=== PATIENT | male | born 1975 | race Asian ===

== ENCOUNTER 2018-08-31 12:47 | Emergency (ER) | payer OTHER ==
[~2018-08-31] VITALS: Ht 170.2 cm; Wt 69.4 kg
[2018-08-31 13:16] VITALS: BP 113/73
[2018-08-31] MEDS ORDERED: KETOROLAC TROMETHAMINE INJ 30 MG/ML VIAL ONE (13:27)
[2018-08-31] MEDS ORDERED: KETOROLAC TROMETHAMINE INJ 60 MG/2 ML VIAL IM ONE (13:30)
--- NOTE | 2018-08-31 13:35 | NUR ---
For discharge- ACI given Home ambulatory stable
== END 2018-08-31 13:36 | disposition home or self-care (01) ==
LOC: ER 12:51
DX: S39.012A Strain of muscle, fascia and tendon of lower back, initial encounter (principal); X58.XXXA Exposure to other specified factors, initial encounter; Y93.89 Activity, other specified; Y92.89 Other specified places as the place of occurrence of the external cause; Y99.8 Other external cause status
CPT/HCPCS: 96372; 99283; A4606; J1885; Z7610

== ENCOUNTER 2018-09-05 17:04 | Emergency (ER) | payer OTHER ==
[~2018-09-05] VITALS: Ht 175.3 cm; Wt 77.1 kg
--- NOTE | 2018-09-05 17:19 | NUR ---
43 Y/O MALEPLACED IN BED 3 C/O LOWER BACK PAIN FOR A WEEK. PT SEEN EARLIER IN THE WEEK FOR THE SAME COMPLAINT.
[2018-09-05] MEDS ORDERED: methylPREDNISolone SOD SUCC 125 MG/2ML VIAL ONE (17:49)
[2018-09-05] MEDS ORDERED: KETOROLAC TROMETHAMINE INJ 60 MG/2 ML VIAL IM ONE ×2 (17:50→18:00)
--- NOTE | 2018-09-05 17:58 | NUR ---
PT MEDICATED FOR BACK PAIN. DX - CHRONIC BACK PAIN. ACI WITH RX GIVEN. PT DISCHARGED HOME TO FOLLOW UP WITH PMD.
[2018-09-05] MEDS ORDERED: methylPREDNISolone SOD SUCC 125 MG/2ML VIAL IM ONE (18:00)
[2018-09-05 18:01] VITALS: BP 134/76
== END 2018-09-05 18:04 | disposition home or self-care (01) ==
LOC: ER 17:07
DX: M54.5 Low back pain (principal)
CPT/HCPCS: 96372 ×2; 99284; J1885; J2930; A4606; Z7610